=== PATIENT | male | born 1980 | race Caucasian/White ===

== ENCOUNTER 2021-05-12 16:17 | Emergency (ER) | payer OTHER ==
[~2021-05-12] VITALS: Ht 172.7 cm; Wt 68.0 kg
[2021-05-12] MEDS ORDERED: PREDNISONE 20 M20 MG PO (17:18)
[2021-05-12 17:25] VITALS: BP 123/74
== END 2021-05-12 17:27 | disposition left against medical advice (07) ==
LOC: ER 16:17
DX: R06.02 Shortness of breath (principal); T45.2X5A Adverse effect of vitamins, initial encounter; L50.8 Other urticaria; J45.909 Unspecified asthma, uncomplicated; Y92.89 Other specified places as the place of occurrence of the external cause